=== PATIENT | male | born 2000 ===

== ENCOUNTER 2024-04-05 13:52 | Emergency (ER) | payer SELFPAY ==
[2024-04-05 13:56] VITALS: BP 148/87; PULSE 86; RESP 16; TEMP 37.1; O2SAT 99
--- NOTE | 2024-04-05 16:10 | ED_ITS ---
HPI - Dental/Oral General Chief complaint: Dental/Oral Stated complaint: dental pain Time Seen by Provider: 04/05/24 14:25 History of Present Illness HPI Narrative: 24-year-old male presenting with dental pain. States that he has been having pain in his front several teeth for the last few days. Has taken ibuprofen with minimal relief. States that he is just in the area for work and he lives in [facility]. Does not have a dentist. Related Data Allergies Allergy/AdvReac Type Severity Reaction Status Date / Time No Known Allergies Allergy Verified 04/05/24 13:52 Review of Systems Review of Systems: All systems reviewed & are unremarkable except as noted in HPI and below Exam Narrative: GENERAL: Well-appearing, in no acute distress, pleasant cooperative HEAD: Normocephalic, atraumatic. EYES: PERRLA and EOMI. ENT: tooth 8 is fractured and discolored, tender with palpation, no abscess appreciated NECK: Supple. CHEST: No respiratory distress. HEART: Regular rate and rhythm. EXTREMITIES: Normal range of motion SKIN: Warm, dry, no rash. NEURO:Alert and oriented x3. PSYCH: Normal mood and affect. Course Vital Signs Vital signs: Vital Signs Temperature 98.7 F 04/05/24 13:56 Pulse Rate 86 04/05/24 13:56 Respiratory Rate 16 04/05/24 13:56 Blood Pressure 148/87 H 04/05/24 13:56 Pulse Oximetry 99 04/05/24 13:56 Oxygen Delivery Room Air 04/05/24 13:56 Temperature 98.7 F 04/05/24 13:56 Pulse Rate 86 04/05/24 13:56 Respiratory Rate 16 04/05/24 13:56 Blood Pressure 148/87 H 04/05/24 13:56 Pulse Oximetry 99 04/05/24 13:56 Oxygen Delivery Room Air 04/05/24 13:56 MDM - Dental/Oral MDM Narrative Medical decision making narrative: 24-year-old male presenting with dental pain. Exam remarkable for the above. Tooth 8 is fractured and discolored. States that it has been fractured for many years. Denies any purulent drainage or swelling. He is not from this area, he is only here temporarily for work. Will get him started on Augmentin, Tylenol and naproxen for pain control. Discussed the importance of following up with a dentist. Appropriate return precautions given. Discharged in stable condition. Critical Care Time Critical Care Time Critical Care Time: No Discharge Plan Discharge Clinical Impression: Fracture of tooth, Toothache Patient Disposition: Home, Self-Care Condition: Stable Instructions: Antibiotic Form, Toothache (ED) Additional Instructions: We are starting on antibiotics for a dental infection. Please take the pain medicines as prescribed. Please follow-up closely with a dentist. If your symptoms worsen or other concerning symptoms arise, please return to the ER. Prescriptions: New amoxicillin-pot clavulanate 875-125 mg tablet 1 tablet PO Q12H Qty: 14 0RF acetaminophen [Tylenol Extra Strength] 500 mg tablet 1,000 mg PO Q8-10H PRN (Reason: pain) Qty: 30 0RF naproxen 500 mg tablet 500 mg PO BID Qty: 30 0RF Follow-up/Referrals: PHYSICIAN,LACE ROLLER OPERATOR [Primary Care Provider] -
[2024-04-05] MEDS: ACETAMINOPHEN 500 MG TABLET 1000 MG PO (16:27)
[2024-04-05] MEDS: NAPROXEN 500 MG TABLET PO (16:28)
[2024-04-05 16:39] VITALS: BP 140/66; PULSE 88; RESP 18; TEMP 36.6; O2SAT 99
== END 2024-04-05 16:41 | disposition home or self-care (01) ==
PROVIDERS: Emergency Provider Emergency Medicine
DX: K03.81 Cracked tooth (principal)
CPT/HCPCS: 99283; A9270